=== PATIENT | male | born 1975 | race Caucasian/White ===

== ENCOUNTER 2016-06-21 03:09 | Emergency (ER) | payer MEDICARE, OTHER ==
[~2016-06-21] VITALS: Ht 177.8 cm; Wt 72.6 kg
[~2016-06-21 03:09] MED LIST: IBUPROFEN600 MG ORAL; LAMICTAL150 MG ORAL; ONDANSETRON ODT8 MG; PERCOCET 5-3251 EACH ORAL; TOPIRAMATE100 MG
[2016-06-21 03:11] VITALS: BP 145/87
[2016-06-21 03:36] VITALS: BP 145/87
--- NOTE | 2016-06-21 03:46 | Emergency Room Report ---
History of Present Illness General Chief Complaint: Skin Rash/Abscess Source: Patient Present Illness HPI 41 YO M concerned for "herpes." Patient last week gave oral sex to another man but didnt insert his penis for intercourse. He was masturbating tonight and noticed "white spot" under his penile shaft and he "wiped it away." He also believes he saw another "spot" on right groin area. He states his mother is a nurse so he took a week's worth of valtrex already. He otherwise denies history of STDs, dysuria, penile discharge, scrotum pain, fever/chills, abd pain , open sores or chancres on penis or groin area. Allergies: Coded Allergies: GLUTEN (Unverified Allergy, Unknown, 11/23/14) Patient History Past Medical History: none Past Surgical History: none Pertinent Family History: none Social History: Denies: alcohol use, drug use, smoking Immunizations: UTD Reviewed Nursing Documentation: PMH: Agreed, PSxH: Agreed Nursing Documentation-PMH Hx Gastrointestinal Problems: Yes - Crohn's Review of Systems All Other Systems: negative except mentioned in HPI Physical Exam Vital Signs Date Time Temp Pulse Resp B/P Pulse Ox O2 Delivery O2 Flow Rate FiO2 06/21/16 03:11 97.5 88 16 145/87 100 Room Air Sp02 EP Interpretation: reviewed, normal General Appearance: normal inspection, well appearing, no apparent distress, alert, GCS 15, non-toxic, other - Tearful, very anxious Head: normocephalic, atraumatic Eyes: bilateral eye EOMI, bilateral eye PERRL ENT: normal ENT inspection, hearing grossly normal, normal voice Neck: normal inspection, full range of motion, supple, no bony tend Respiratory: normal inspection, lungs clear, normal breath sounds, no respiratory distress, no retraction, no wheezing Cardiovascular #1: regular rate, rhythm, no edema Gastrointestinal: normal inspection, normal bowel sounds, non tender, soft, no guarding, no hernia Genitourinary: no CVA tenderness, penis normal, scrotum normal, other - No vesicles, chancres or open sores. No penile discharge. Musculoskeletal: normal inspection, back normal, normal range of motion, Heaven' s Sign negative Neurologic: normal inspection, alert, oriented x3, responsive, bolt cutter III-XII nml as tested, motor strength/tone normal, speech normal Psychiatric: normal inspection, judgement/insight normal, mood/affect normal Skin: normal inspection, normal color, no rash Lymphatic: normal inspection Medical Decision Making Diagnostic Impression: Primary Impression: Rash and other nonspecific skin eruption ER Course No herpetic lesions on scrotum, shaft. No other rash or lesions of any kind seen on penis, scrotum or groin Patient reassured On discharge, patient asks for refill of [place]. EMR indicates previous visit here for drug-seeking behavior. Informed patient I would not refill Rx for [place]. Advised PMD followup for STD testing if still concerned. Last Vital Signs Date Time Temp Pulse Resp B/P Pulse Ox O2 Delivery O2 Flow Rate FiO2 06/21/16 03:36 97.5 95 16 145/87 100 Room Air Status: improved Disposition: HOME, SELF-CARE Condition: Improved Referrals: NON PHYSICIAN (PCP) Additional Instructions: - Please follow up with your doctor for STD testing if you continue to be concerned. LAURA REED M.D. Jun 21, 2016 03:46
== END 2016-06-21 03:37 | disposition home or self-care (01) ==
LOC: EMR 03:35
DX: R21 Rash and other nonspecific skin eruption (principal); K50.90 Crohn's disease, unspecified, without complications; Z91.018 Allergy to other foods
CPT/HCPCS: 99282